=== PATIENT | female | born 2000 | race Caucasian/White ===

== ENCOUNTER 2021-09-06 16:01 | Outpatient (CLI) | payer OTHER, SELFPAY | END 2021-09-06 23:59 | disposition home or self-care (01) | LOC: IMMUN 09-07 16:02 | PROVIDERS: Visit Provider Family Medicine | DX: Z23 Encounter for immunization (principal) ==

== ENCOUNTER 2021-09-10 18:34 | Emergency (ER) | payer OTHER, SELFPAY ==
[2021-09-10 18:35] VITALS: BP 103/63; PULSE 89; RESP 16; TEMP 36; O2SAT 99; BMI 23.0
--- NOTE | 2021-09-10 18:54 | EKG12_ITS ---
Test Reason : DIZZY Blood Pressure : / mmHG Vent. Rate : 078 BPM Atrial Rate : 078 BPM P-R Int : 142 ms QRS Dur : 082 ms QT Int : 354 ms P-R-T Axes : 069 060 032 degrees QTc Int : 403 ms Sinus rhythm with marked sinus arrhythmia Otherwise normal ECG Confirmed by JOSH GASPAR, CAYETANO ([id number]), editorial writer ALBAN PRITCHARD ([id number]) on 09/11/2021 9:58:49 AM Referred By: CHANDANA Confirmed By:CAYETANO MORENO MD
--- NOTE | 2021-09-10 18:55 | EDS_ITS ---
HPI History of Present Illness Chief Complaint: Dizziness Informant: patient Narrative Narrative: Patient presents with episode of syncope, lightheadedness and palpitations that started on Friday morning. On she had her Pfizer Covid booster. She had previously had to [place]. She also had COVID this July. She got booster on and when she woke up Friday morning she had a syncopal event. Since then she has had several episodes of transient lightheadedness but has not had further syncope. She has had intermittent racing heart rate with some mild dyspnea. She did not have this with COVID or the other vaccines. She has had brain fog after Covid but that is not changed or in any way different. She already has neurology follow-up for that. Patient has never had a DVT or PE. She has no leg pain or swelling. However, she is on Nexplanon and her mother and grandmother have both had pulmonary emboli. PFSH PFSH Medical History no medical history Allergy/AdvReac Type Severity Reaction Status Date / Time diphenhydramine AdvReac Other Verified 09/10/21 18:44 [From Benadryl] Surgical History no surgical history Social History Smoking Status: Light Smoker (<10/day) [facility] ED Constitutional Constitutional ED: Reports chills, subjective and other Details: After Covid booster, she did have chills and myalgias consistent with booster. ; Denies fe nola(s) Eyes Eyes: Denies blurry vision or change in vision ENT ENT ED: Denies rhinorrhea or sore throat Cardiovascular Cardiovascular: Reports chest pain, palpitations, racing heartbeat and other Details: Patient has had intermittent palpitations. She states sometimes she feels as though they hurt but is generally not having chest pain. Respiratory/Chest Respiratory/Chest: Reports other Details: She has had dyspnea when she has a racing heart. She is mildly dyspneic now. Gastrointestinal Gastrointestinal: Denies abdominal pain, nausea or vomiting Genitourinary Genitourinary ED: Denies dysuria Musculoskeletal Musculoskeletal: Reports myalgias Integumentary Denies rash Neurologic Neurologic: Denies headache(s), paresthesias or weakness Psychiatric Psychiatric: Reports anxiety and other Details: Patient states since she has had the symptoms she has had some mild anxiety regarding them. But does not have baseline anxiety. She states it is hard to tell sometimes when she is having more anxiety symptoms versus physical symptoms. ; Denies depression Endocrine Endocrinology: Denies polydipsia or polyuria Allergic/Immunologic Allergic/Immunologic ED: Denies urticaria EXAM Physical Exam Const Vital Signs: 09/10/21 18:35 09/10/21 18:45 Temperature 96.8 F L Temperature Source Temporal Pulse Rate 89 Respiratory Rate 16 Respiratory Effort Normal Non-Labored Respiratory Pattern Normal Blood Pressure 103/63 Blood Pressure Mean 76 Pulse Ox 99 Oxygen Delivery Method Room Air Positive well nourished and well developed General Appearance ED: well developed and NAD; Negative for cyanotic, diaph oretic or pallor HEENT Reports moist mucous membranes; Denies dry mucous membranes Negative for trauma Mouth ED: No dry mucous membranes Mouth: No dry mucous membranes Eyes General Eye ED: Negative for pale conjunctiva or scleral icterus Neck no JVD Chest Wall inspection of chest normal Resp normal respiratory effort and clear to auscultation bilaterally Resp Narrative: Lungs are clear. There is no pain with a deep breath. Effort and Inspection: Negative for pain with movement Auscultation: Negative for rales, rhonchi or wheezes Cardio regular rate and regular rhythm Rate: other Other Details: Heart rate is normal. Rhythm is normal. No murmurs. No muffled tones. GI normal to inspection, nondistended, normoactive bowel sounds Palpation: soft Back/Spine no CVA tenderness Extremity normal to inspection Extremity Narrative: No edema, cords, tenderness along the deep venous system or distended veins. General Extremety ED: Negative for edema or tenderness General Extremity: Negative for edema Neuro Sensorium / Orientation: alert Psych mental status grossly normal Skin no rashes or lesions noted and no wounds General Skin Exam: Negative for pallor MDM MDM MDM Narrative Medical decision making narrative: Patient CBC is normal. D-dimer and troponin are negative. Electrolytes show no marked abnormalities. is neg ative. X-ray is negative. EKG shows no acute process. Patient has had no notable dysrhythmias on the monitor. I think she can go home. We recommended hydration to be continued. She has follow-up with neurology. If she has any further symptoms she should return. I explained that if she has some mild symptoms they may end up getting her cardiac monitoring. I will give her # to cardiology also. Lab Data Attestation: I reviewed the patient's lab results. Labs: Laboratory Results - last 24 hr 09/10/21 09/10/21 09/10/21 19:00 19:00 19:00 WBC 5.1 RBC 4.38 Hgb 13.5 Hct 39.2 MCV 89.5 MCH 30.8 MCHC 34.4 RDW Std Deviation 42.0 RDW Coeff of Braulio 12.8 Plt Count 240 MPV 8.7 Immature Gran % (Auto) 0.200 Neut % (Auto) 46.2 L Lymph % (Auto) 43.2 H Mitchell % (Auto) 8.8 Eos % (Auto) 1.2 Baso % (Auto) 0.4 Absolute Neuts (auto) 2.4 Absolute Lymphs (auto) 2.20 Nucleated RBC % 0 D-Dimer Quant (PE/DVT) 0.28 Sodium 139 Potassium 3.7 Chloride 108 H Carbon Dioxide 27.0 Anion Gap 4 L BUN 8 Creatinine 0.86 Estim Creat Clear Calc 86.32 Est GFR (MDRD) Af Amer 108 Est GFR (MDRD) Non-Af 89 BUN/Creatinine Ratio 9.3 L Glucose 98 Calcium 9.4 Troponin I High Sens < 3 L Serum , Qual 09/10/21 19:00 WBC RBC Hgb Hct MCV MCH MCHC RDW Std Deviation RDW Coeff of Braulio Plt Count MPV Immature Gran % (Auto) Neut % (Auto) Lymph % (Auto) Mitchell % (Auto) Eos % (Auto) Baso % (Auto) Absolute Neuts (auto) Absolute Lymphs (auto) Nucleated RBC % D-Dimer Quant (PE/DVT) Sodium Potassium Chloride Carbon Dioxide Anion Gap BUN Creatinine Estim Creat Clear Calc Est GFR (MDRD) Af Amer Est GFR (MDRD) Non-Af BUN/Creatinine Ratio Glucose Calcium Troponin I High Sens Serum , Qual NEGATIVE Radiography Diagnostic Testing: Clinical Impression(s) from Imaging Studies Chest X-Ray 09/10/21 19:10 IMPRESSION: There are no acute findings. Electronically Signed: Dennis Lloyd MD at 19:32 EST Reading Location ID and State: [facility] / [place] , Service support , EKG Initial EKG: Comments: EKG done for dyspnea palpitations read by me shows normal sinus rhythm with some sinus arrhythmia. No notable ectopy. No acute ST elevation or depression. NH interval, QRS duration and QTc are normal. Discharge Plan Triage Chief Complaint: Dizziness ED Provider: John Solis Dx/Rx/DC Orders Clinical Impression: Syncope Instructions: ED Fainting, Uncertain Cause Primary Care Provider: Care Physician,No Primary Referrals: Pratik Camilo MD [STAFF PHYSICIAN] - 1 Week Care Physician,No Primary [Primary Care Provider] - Disposition Disposition: Home, Self Care
[2021-09-10] MEDS: 0.9% Normal Saline 1,000 ML 1000 ML IV (19:04)
--- NOTE | 2021-09-10 19:10 | RAD_ITS ---
STUDY: X-RAY CHEST REASON FOR EXAM: Female, 21 years old. CHEST PAIN chest pain TECHNIQUE: XR Chest 1 View COMPARISON: None FINDINGS: There is no demonstrated pleural abnormality. Normal size heart. Normal mediastinum and darrell. Normal visualized pulmonary arteries. Normal visualized aortic arch and descending thoracic aorta. Normal visualized thoracic spine. Normal visualized ribs, clavicles, and shoulders. There is no demonstrated abnormality of the visualized soft tissue structures of the upper abdomen. RAD/Chest 1 View (Portable) IMPRESSION: There are no acute findings. Electronically Signed: Dennis Lloyd MD at 19:32 EST ,
[2021-09-10 19:12] LABS: Absolute Neutrophil Count 2.4 X10^3/uL (2.0-7.7); Basophil# 0.02 X10^3/uL; Basophil% 0.4 % (0-1); Eosinophil# 0.06 X10^3/uL; Eosinophils% 1.2 % (0-5); Hematocrit 39.2 % (37-47); Hemoglobin 13.5 g/dL (12.0-15.0); Lymphocyte % 43.2 % (19-41); Mean Corp Hgb Conc 34.4 g/dL (32-36); Mean Corpuscular Hgb 30.8 pg (27.0-32.0); Mean Corpuscular Volume 89.5 fL (81-99); Mean Platelet Vol. 8.7 fl (6.2-12.0); Monocyte# 0.45 X10^3/uL; Monocyte% 8.8 % (0-10); NRBC Flagged by Analyzer 0 % (0-5); Neutrophil # 2.35 X10^3/uL (2.7-7.7); Neutrophil % 46.2 % (47-70); Platelet Count 240 K/mm3 (150-450); RBC Distribution Width CV 12.8 % (11.6-14.6); Red Blood Count 4.38 M/mm3 (4.2-5.4); White Blood Count 5.1 K/mm3 (4.4-11.0)
[2021-09-10 19:28] LABS: Anion Gap 4 (5-15); BUN 8 mg/dL (7-18); BUN/Creat Ratio 9.3 RATIO (10-20); Calcium,Total 9.4 mg/dL (8.5-10.1); Chloride 108 mmol/L (98-107); Creatinine, Serum 0.86 mg/dL (0.55-1.02); EST Glomerular Filtration Rate 89 mL/min (>60); Est Glom Filt Rate - Afr Amer 108 mL/min (>60); Estimated Creatinine Clearance 86.32 ml/min; Glucose 98 mg/dL (74-106); Potassium 3.7 mmol/L (3.5-5.1); Sodium Level 139 mmol/L (136-145); Troponin-I HS < 3 pg/mL (3.0-54.0)
[2021-09-10 19:29] LABS: D-Dimer Quantitative (DVT/PE) 0.28 FEU/ug/m (0.27-0.49)
[2021-09-10 20:29] LABS: Internal QC Validated? YES +Cl - CLEAR BKGD; Pregnancy, Serum, hCG Quali. NEGATIVE Negative
[2021-09-10 20:59] VITALS: BP 111/71; PULSE 76; RESP 20; O2SAT 99
== END 2021-09-10 20:59 | disposition home or self-care (01) ==
PROVIDERS: Emergency Provider Emergency Medicine; Visit Provider Emergency Medicine
DX: R55 Syncope and collapse (principal); R06.00 Dyspnea, unspecified; F17.200 Nicotine dependence, unspecified, uncomplicated; Z86.16 Personal history of COVID-19
CPT/HCPCS: 71045; 80048; 84484; 84703; 85025; 85379; 93005; 96360; 99284; J7030; A4216

== ENCOUNTER 2022-03-20 22:33 | Emergency (ER) | payer OTHER, SELFPAY ==
[2022-03-20 22:34] VITALS: BP 147/69; PULSE 96; RESP 15; TEMP 36.4; O2SAT 98; BMI 25.3
--- NOTE | 2022-03-20 22:59 | EDS_ITS ---
HPI History of Present Illness Chief Complaint: Allergic Reaction Informant: patient Narrative Narrative: 22-year-old female, [employer] student, presenting to the emergency room with 24 hours of hives. Patient states that she has had a new perfume that she wore for several days prior to the hives beginning last evening. States that she took Benadryl but the hives got worse tonight. She denies any new soaps lotions detergents etc. She denies any difficulty breathing or swallowing or changes in voice. She states that 1 time she had hives in the past but not to this extent. She has a history of seasonal allergies. No history of asthma or atopic dermatitis. [facility] Medical History Mobitz (type) I (Wenckebach's) atrioventricular block Home Medications famotidine 20 mg tablet 20 mg PO BID #14 TABLETS 03/20/22 [Rx Last Taken Unknown] levocetirizine 5 mg tablet (Xyzal) 5 mg PO DAILY 03/20/22 [History Last Taken Unknown] prednisone 20 mg tablet See Rx Instructions .Route .COMPLEX #24 TABLETS 03/20/22 [Rx Last Taken Unknown] Allergy/AdvReac Type Severity Reaction Status Date / Time No Known Allergies Allergy Verified 03/20/22 22:37 Social History (Updated 03/20/22 @ 23:[address] Kameron West DO) Smoking Status: Light Smoker (<10/day) substance use type: does not use ROS ROS ED Constitutional Constitutional ED: Denies chills or weight loss Eyes Eyes: Denies change in vision or diplopia ENT ENT ED: Denies ear pain, rhinorrhea or sore throat Cardiovascular Cardiovascular: Denies chest pain, orthopnea, palpitations or racing heartbeat Respiratory/Chest Respiratory/Chest: Denies cough, dyspnea or orthopnea Gastrointestinal Gastrointestinal: Denies abdominal pain, diarrhea, nausea or vomiting Genitourinary Genitourinary ED: Denies dysuria, hematuria or urinary frequency Musculoskeletal Musculoskeletal: Denies arthralgias or myalgias Integumentary Reports rash; Denies abscess Neurologic Neurologic: Denies headache(s) or weakness Psychiatric Psychiatric: Denies anxiety, depression, suicidal ideation or suicidal thoughts Endocrine Endocrinology: Denies polydipsia, polyphagia or polyuria Allergic/Immunologic Allergic/Immunologic ED: Denies mouth swelling, tongue swelling or urticaria EXAM Physical Exam Const Vital Signs: 03/20/22 22:34 Temperature 97.5 F L Temperature Source Temporal Pulse Rate 96 Respiratory Rate 15 Blood Pressure 147/69 H Blood Pressure Mean 95 Pulse Ox 98 Oxygen Delivery Method Room Air Positive well nourished and well developed General Appearance ED: well developed HEENT Reports normocephalic, head/scalp atraumatic and moist mucous membranes HEENT Narrative: There does not appear to be any intraoral or retropharyngeal swelling. Voice appears normal. Handling secretions normally Eyes PERRL and EOMs intact bilaterally Neck no lymphadenopathy, supple and no JVD Resp normal respiratory effort and clear to auscultation bilaterally Cardio regular rate, regular rhythm and no murmurs GI normal to inspection, nondistended, normoactive bowel sounds and non-tender Palpation: soft Back/Spine no CVA tenderness and normal ROM Extremity normal to inspection General Extremety ED: Negative for edema General Extremity: Negative for edema Neuro oriented x3 and CN's II-XII intact bilaterally Sensorium / Orientation: alert Motor Exam: strength 5/5 throughout Psych mental status grossly normal Mood & Affect: Negative for depressed or tearful Skin no wounds Skin Narrative: Patient has diffuse hives on her torso arms and upper legs. No evidence of secondary infection. MDM MDM MDM Narrative Medical decision making narrative: Patient will be started on Pepcid as well as prednisone. First dose is to be given in the emergency department. Would recommend continuation of Benadryl. Discontinuation of the perfume which she has already done. She is also advised to go ahead and to keep a watchful eye out for anything else that may be different. Discharge Plan Triage Chief Complaint: Allergic Reaction ED Provider: Kameron West Dx/Rx/DC Orders Clinical Impression: Urticaria Instructions: ED Hives (Adult) Prescriptions: New prednisone 20 mg tablet See Rx Instructions .ROUTE .COMPLEX Qty: 24 0RF Rx Instructions: 3 tabs p.o. daily days 1 through 4, then 2 tabs p.o. daily days 5 through 8, then 1 tab p.o. daily day 9 through 12 famotidine [famotidine] 20 mg tablet 20 mg PO BID Qty: 14 0RF No Action levocetirizine [Xyzal] 5 mg Tablet 5 mg PO DAILY Primary Care Provider: Care Physician,No Primary Referrals: [facility] [Group of Physicians] - As Needed Care Physician,No Primary [Primary Care Provider] - Disposition Disposition: Home, Self Care
[2022-03-20] MEDS: Famotidine 20 MG Tablet 40 MG PO (23:06)
[2022-03-20] MEDS: predniSONE 20 MG Tablet 60 MG PO (23:06)
== END 2022-03-20 23:09 | disposition home or self-care (01) ==
PROVIDERS: Emergency Provider Emergency Medicine; Visit Provider Emergency Medicine
DX: T78.40XA Allergy, unspecified, initial encounter (principal); F17.200 Nicotine dependence, unspecified, uncomplicated; L50.9 Urticaria, unspecified; Z79.52 Long term (current) use of systemic steroids
CPT/HCPCS: 99283